=== PATIENT | female | born 1985 | race Caucasian/White ===

== ENCOUNTER → 2016-05-07 | Outpatient (CLI) | payer SELFPAY | LOC: LAB 11:32 | PROVIDERS: ATTEND Obstetrics & Gynecology Gynecology | DX: O92.6 Galactorrhea (principal) | CPT/HCPCS: 36415; 84146 ==

== ENCOUNTER → 2016-05-13 | Outpatient (CLI) | payer SELFPAY ==
--- NOTE | 2016-05-13 13:09 | DI ---
LEFT KNEE, 05/13/2016 11:55 AM: Clinical History: Acute left knee pain. Previous Exam: None at this facility. 3 views are submitted. There is no acute soft tissue, osseous, or joint abnormality. Reading: Normal left knee exam.
== END ==
LOC: MOB RAD 11:56
PROVIDERS: ATTEND Family Medicine
DX: M25.562 Pain in left knee (principal)
CPT/HCPCS: 73562